=== PATIENT | female | born 1985 | race Caucasian/White ===

== ENCOUNTER 2017-03-21 08:35 | Emergency (ER) | payer MEDICAID ==
--- NOTE | 2017-03-21 08:54 | EDM.PDOC ---
ED HPI GENERAL MEDICAL PROBLEM - General Chief Complaint: Chest Pain Stated Complaint: LEG PAIN X 1 MONTH NOW ARM PAIN AND CHEST PAIN Time Seen by Provider: 03/21/17 08:53 Source of Information: Reports: Patient History Limitations: Reports: No Limitations - History of Present Illness INITIAL COMMENTS - FREE TEXT/NARRATIVE: 31-year-old female presents the ED with left upper extremity pain mostly medial arm to the elbow and left anterior chest pressure discomfort. She states she awoke with these symptoms this morning. Feels it's difficult to breathe as was a constant pressure in her left precordial chest. She does not have asthma. She has no cough or sputum production. No fever or chills. No recent use of control pills. She's been having some pain medial aspect of her left thigh for the better part of a month which is a constant aching discomfort not amenable to stretching nor any worse with exercise program. No swelling of the lower extremity or calf appreciated. Did feel some pain in her calf yesterday p.m. She has no history of DVT and no recent prolonged travel history. States she has full range of motion of her left upper extremity and can't really make the pain worse in her chest on the she deep breathes. She reports it's like a heaviness in her left anterior chest. ECG done by triage nurse reveals sinus rhythm at 81 per minute with decreased voltage in the precordial leads but no signs of ischemia. Onset: Today Onset Date: 03/21/17 (Awoke with left precordial chest and left upper extremity discomfort. Left medial thigh pain has been present for the better part of a month.) Duration: Hour(s): Location: Reports: Chest (Left precordial chest left upper extremity . Medial left thigh.) Quality: Reports: Ache, Pressure, Other (Constant) Severity: Moderate (The pressure just makes it difficult to get a full deep breath.) Improves with: Reports: None Worsens with: Reports: Movement Context: Denies: Activity, Exercise, Lifting, Sick Contact, Trauma, Other Associated Symptoms: Reports: Chest Pain. Denies: No Other Symptoms, Confusion , Cough, cough w sputum, Diaphoresis (See history of present illness), Fever/ Chills, Headaches, Loss of Appetite, Malaise, Nausea/Vomiting, Rash, Seizure, Shortness of Breath, Syncope, Weakness Treatments BULLION WEIGHER: Reports: Other (see below) (None.) Left Upper Leg Pain Score (Numeric/FACES): 4 Left Upper Arm Pain Score (Numeric/FACES): 2 Left Chest Pain Score (Numeric/FACES): 6 - Related Data Allergies Allergy/AdvReac Type Severity Reaction Status Date / Time No Known Allergies Allergy Verified 03/21/17 08:46 Home Meds: Home Meds . 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 Denies: Wheezing, Pleuritic Chest Pain (Only this morning with deep breathing.), Cough, Sputum, Hemoptysis Cardiovascular: Reports: Chest Pain. Denies: Blood Pressure Problem (See history of present illness), Claudication, Dyspnea on Exertion, Edema, Lightheadedness, Orthopnea, Palpitations GI/Abdominal: Reports: No Symptoms : Reports: No Symptoms Musculoskeletal: Reports: Shoulder Pain (Left shoulder and upper arm discomfort started this morning as well. She has full range of motion however.), Other ( Has had constant medial left thigh pain for the better part of a month. Like a deep aching discomfort in her left medial thigh) Skin: Reports: No Symptoms Neurological: Reports: No Symptoms Psychiatric: Reports: No Symptoms Hematologic/Lymphatic: Reports: No Symptoms Immunologic: Reports: No Symptoms ED EXAM, GENERAL - Physical Exam Exam: See Below Exam Limited By: No Limitations General Appearance: Alert, WD/WN, Anxious, Mild Distress Throat/Mouth: Normal Inspection, Normal Lips, Normal Teeth. No: Dysphagia Head: Atraumatic, Normocephalic Neck: Normal Inspection, Supple, Non-Tender, Full Range of Motion. No: Carotid Bruit, Lymphadenopathy (L), Lymphadenopathy (R), Thyromegaly Respiratory/Chest: No Respiratory Distress, Lungs Clear, Normal Breath Sounds, No Accessory Muscle Use, Other (Chest is very tender to palpation particularly third fourth and fifth ribs left midclavicular line and laterally.). No: Chest Non-Tender Cardiovascular: Normal Peripheral Pulses, Regular Rate, Rhythm, No Edema, No Gallop, No Murmur Peripheral Pulses: 2+: Posterior Tibial (L), Posterior Tibial (R), Dorsalis Pedis (L), Dorsalis Pedis (R), 3+: Radial (L), Radial (R) GI/Abdominal: Normal Bowel Sounds, Soft, Non-Tender, No Organomegaly Back Exam: Normal Inspection, Full Range of Motion, Other. No: CVA Tenderness ( L), CVA Tenderness (R) Extremities: Normal Inspection (No rib head subluxation or paraspinal muscle spasm.), Normal Range of Motion, Non-Tender, No Pedal Edema, Other Neurological: Alert (I can't make the pain in her leg any worse by deep palpation of the area that she reports is sore. Also no evidence of swelling of the extremity no pain in the gastrocnemius or midline of the left calf.), Oriented, CN II-XII Intact, Normal Cognition, Normal Gait Psychiatric: Normal Affect, Normal Mood Skin Exam: Warm, Dry, Intact, Normal Color, No Rash EKG INTERPRETATION EKG Date: 03/21/17 Time: 08:50 Rhythm: NSR Rate (Beats/Min): 82 Phillips: Normal P-Wave: Present QRS: Other (Mildly decreased voltage in the precordial leads.) ST-T: Normal QT: Normal EKG Interpretation Comments: Normal ECG without any signs of ischemia. Course - Vital Signs Last Recorded V/S: Last Vital Signs Temp 36.6 C 03/21/17 08:42 Pulse 63 03/21/17 12:03 Resp 16 03/21/17 12:03 BP 111/79 03/21/17 12:03 Pulse Ox 100 03/21/17 12:03 - Orders/Labs/Meds Orders: Active Orders 24 hr Category Date Time Status EKG Documentation Completion [RC] ASDIRECTED Care 03/21/17 08:50 Active EKG 12 Lead [EK] Stat Ther 03/21/17 08:50 Ordered Labs: Laboratory Tests 03/21/17 03/21/17 03/21/17 Range/Units 08:57 08:57 08:57 WBC 4.46 (3.98-10.04) K/mm3 RBC 5.03 (3.98-5.22) M/mm3 Hgb 11.6 (11.2-15.7) gm/L Hct 36.9 (34.1-44.9) % MCV 73.4 L (79.4-94.8) fl MCH 23.1 L (25.6-32.2) pg MCHC 31.4 L (32.2-35.5) g/dl RDW Std Deviation 41.0 (36.4-46.3) fL Plt Count 274 (182-369) K/mm3 MPV 10.0 (9.4-12.3) fl Neutrophils % (Manual) 49 (40-60) % Band Neutrophils % 0 (0-10) % Lymphocytes % (Manual) 49 H (20-40) % Atypical Lymphs % 0 % Monocytes % (Manual) 1 L (2-10) % Eosinophils % (Manual) 1 (0.7-5.8) % Basophils % (Manual) 0 L (0.1-1.2) Platelet Estimate Adequate Hypochromasia 1+ slight Anisocytosis 1+ slight Microcytosis 1+ slight RBC Morph Comment Not Reportable ESR (0-20) mm/hr D-Dimer, Quantitative < 0.19 L (0.19-0.59) mg/L Sodium 139 (136-145) mEq/L Potassium 4.3 (3.5-5.1) mEq/L Chloride 105 (98-107) mEq/L Carbon Dioxide 27 (21-32) mEq/L Anion Gap 11.3 (5-15) BUN 16 (7-18) mg/dL Creatinine 0.8 (0.55-1.02) mg/dL Est Cr Clr Drug Dosing 95.38 mL/min Estimated GFR (MDRD) > 60 (>60) mL/min BUN/Creatinine Ratio 20.0 H (14-18) Glucose 108 H (74-106) mg/dL Calcium 9.0 (8.5-10.1) mg/dL Iron (50-170) ug/dL TIBC (100-400) ug/dL % Saturation (20-55) % Transferrin (202-364) mg/dL Total Bilirubin 1.0 (0.2-1.0) mg/dL AST 20 (15-37) U/L ALT 28 (14-59) U/L Alkaline Phosphatase 55 (46-116) U/L Troponin I < 0.017 (0.00-0.056) ng/mL C-Reactive Protein < 0.2 (<1.0) mg/dL Total Protein 7.2 (6.4-8.2) g/dl Albumin 3.8 (3.4-5.0) g/dl Globulin 3.4 gm/dL Albumin/Globulin Ratio 1.1 (1-2) TSH 3rd Generation 1.906 (0.358-3.74) uIU/mL 03/21/17 03/21/17 Range/Units 08:57 08:57 WBC (3.98-10.04) K/mm3 RBC (3.98-5.22) M/mm3 Hgb (11.2-15.7) gm/L Hct (34.1-44.9) % MCV (79.4-94.8) fl MCH (25.6-32.2) pg MCHC (32.2-35.5) g/dl RDW Std Deviation (36.4-46.3) fL Plt Count (182-369) K/mm3 MPV (9.4-12.3) fl Neutrophils % (Manual) (40-60) % Band Neutrophils % (0-10) % Lymphocytes % (Manual) (20-40) % Atypical Lymphs % % Monocytes % (Manual) (2-10) % Eosinophils % (Manual) (0.7-5.8) % Basophils % (Manual) (0.1-1.2) Platelet Estimate Hypochromasia Anisocytosis Microcytosis RBC Morph Comment ESR 10 (0-20) mm/hr D-Dimer, Quantitative (0.19-0.59) mg/L Sodium (136-145) mEq/L Potassium (3.5-5.1) mEq/L Chloride (98-107) mEq/L Carbon Dioxide (21-32) mEq/L Anion Gap (5-15) BUN (7-18) mg/dL Creatinine (0.55-1.02) mg/dL Est Cr Clr Drug Dosing mL/min Estimated GFR (MDRD) (>60) mL/min BUN/Creatinine Ratio (14-18) Glucose (74-106) mg/dL Calcium (8.5-10.1) mg/dL Iron 25 L (50-170) ug/dL TIBC 390 (100-400) ug/dL % Saturation 6 L (20-55) % Transferrin 312 (202-364) mg/dL Total Bilirubin (0.2-1.0) mg/dL AST (15-37) U/L ALT (14-59) U/L Alkaline Phosphatase (46-116) U/L Troponin I (0.00-0.056) ng/mL C-Reactive Protein (<1.0) mg/dL Total Protein (6.4-8.2) g/dl Albumin (3.4-5.0) g/dl Globulin gm/dL Albumin/Globulin Ratio (1-2) TSH 3rd Generation (0.358-3.74) uIU/mL Meds: Medications Discontinued Medications Generic Name Dose Route Start Last Admin Trade Name Freq PRN Reason Stop Dose Admin Ketorolac Tromethamine 30 mg 03/21/17 09:09 03/21/17 09:14 Toradol IVPUSH 03/21/17 09:10 30 mg ONETIME ONE Administration Methylprednisolone Sodium Succinate 125 mg 03/21/17 11:55 03/21/17 12:01 Solu-Medrol IVPUSH 03/21/17 11:56 125 mg ONETIME ONE Administration - Radiology Interpretation Free Text/Narrative:: 31-year-old female presents the ED with left precordial chest heaviness and radiating up into her left shoulder and medial arm. Awoke with these symptoms this morning. She's had left medial thigh pain deep aching discomfort for the better part of a month. Stop maybe she strained a muscle at the gym but exercise in time is not needed any better. After she developed precordial chest pain and arm pain is more she bit became concerned that she may be having a blood clot problem. She has no history of DVT. Examination reveals marked chest wall tenderness third fourth and fifth rib left precordial chest. Full range of motion of upper extremity without any localized tenderness or swelling. Similarly left lower extremity shows no edema and full range of motion with no palpable deformities or pain on deep palpation. Plan two-view chest x-ray. ECG shows no signs of ischemia or abnormalities. Labs will be obtained including cardiac markers and d-dimer. Sedimentation rate and CRP as well. We'll also x- ray her left femur due to persistent deep aching pain in the medial aspect of the quadriceps for a month. - Re-Assessments/Exams Free Text/Narrative Re-Assessment/Exam: 03/21/17 11:23 two-view chest x-ray is within normal limits. Similarly 2 view of the left femur did not identify any bony abdomen maladies to account for her persistent left leg pain.Labs reveal white count of 4.46 with 49% neutrophils and no bands. Hemoglobin is slightly low 11.6 with hematocrit of 36.9. Note MCV is low at 73.4 suggesting iron deficiency as a cause of her anemia. Sedimentation rate was 10. D-dimer is less than 0.19. Sodium is 139. Potassium 4.3. Chloride 105. Bicarbonate 27. Anion gap is 11.3. BUN is 16 creatinine is 0.8. EGFR is greater than 60. Glucose 108. Calcium 9.0. Liver function normal. Troponin I is less than 0.017. C-reactive protein is less than 0.2. TSH is 1.9. Therefore really no abnormalities were identified on examination or laboratory workup. Clinically she is developed chest wall pain. I will order a serum iron and transferrin and iron binding capacity on blood already drawn. 03/21/17: 12:04: Patient still has mild left precordial chest discomfort and still significant tenderness on palpation of the ribs anteriorly. I'm therefore going to give her some ointment over 125 mg IV to further alleviate inflammation. Advised her to take Aleve 2 tablets every 8 hours as needed to reduce pain and inflammation in the chest wall. This is likely a viral etiology. Advised about wearing sports bras instead of under wire was 0. She also mentions chronic spasm when she bends over and muscles. I therefore advised her to worm picker a calcium magnesium supplement like calamine 400 mg once daily. She will take vitamins daily for the next 4-6 weeks and then have her blood rechecked to see if she is absorbing iron to it. She does have significant heavy mental cycle which is contributed to iron deficiency anemia. There is a chance that her chronic left deep aching pain in her leg is due to anemia. The x-ray of the femur today was completely normal and normal evidence of DVT. 03/21/17 13:24 Total iron level is only 25. Normal is 50-150. Total iron binding capacity is 390 up her limits of normal. Percent saturation is very low at 6. Serum transferrin remains in normal limits at 312. Findings are compatible with iron deficiency anemia. Departure - Departure Time of Disposition: 12:00 Disposition: Home, Self-Care 01 Condition: Fair Clinical Impression: Non-cardiac chest pain, Acute chest wall pain, Chronic pain of left lower extremity Iron deficiency anemia Qualifiers: Iron deficiency anemia type: unspecified iron deficiency Qualified Code(s): D50.9 - Iron deficiency anemia, unspecified Instructions: Chest Wall Pain, [id number] Referrals: PCP,None [Ordering Only Provider] - Forms: ED Department Discharge Additional Instructions: Evaluation the emergency room today in regards to development of left anterior chest wall pain radiating to the left shoulder and upper arm as well as chronic pain in the left medial thigh area for the last month. Pain is worsened by deep breathing suggesting a component of pleurisy or inflammation of the lung lining. Pain is evident on palpation of the ribs particularly 34 and 5 on the left side the clavicular line indicating some inflammation of the chest wall as well. Chest x-ray two-view was normal. ECG/heart tracing also proved to be normal. Lab tests also proved to be completely normal with no sign of any serious bacterial infections and no evidence of blood clot in the lungs or legs. Normal heart function as well. Lab function did reveal iron deficiency anemia with small cells that suggest you had been deficient in iron for a lengthy period of time. This may or may not be accounting for some of his chronic left leg pain as the bone marrow has to work overtime when the iron levels are low. This sometimes can cause lower extremity aching. It does not have anything to do today with the occurrence of the left chest wall pain. This is usually viral in origin and as we discussed making sure good support of the breasts with a sports bra or 2 versus underwire bra is important as these cause chest wall pain on occasion. Treatment is there for her to be a vitamin with iron daily ideally with a vitamin C 100 mg tablet to promote increased absorption of the iron. Suggest Aleve 2 tablets every 6 hours as needed for inflammation of the chest wall. Suggest also picking up some calcium magnesium supplement 400 mg tablet once daily. Best place to get this is at [facility] store . They have a much more reliable calcium magnesium supplement and is offered through [employer] etc. Suggest follow-up in the clinic in 4-6 weeks' time to have your iron levels reassessed and your blood values reassess to see if you 're absorbing iron. Chest wall pain may last 5-10 days--particularly nonviral form of chest wall pain. Follow-up with your personal care physician if any further problems occur. - My Orders Last 24 Hours: My Active Orders 03/21/17 08:50 EKG Documentation Completion [RC] ASDIRECTED EKG 12 Lead [EK] Stat - Assessment/Plan Last 24 Hours: My Active Orders 03/21/17 08:50 EKG Documentation Completion [RC] ASDIRECTED EKG 12 Lead [EK] Stat
[2017-03-21] MEDS ORDERED: Ketorolac 30 MG/ML SDV IVPUSH ONE (09:09)
--- NOTE | 2017-03-21 11:16 | CR ---
Chest: Two views of the chest were obtained. Comparison: No prior study. Heart size and mediastinum are normal. Lungs are clear. Bony structures are unremarkable. Impression: 1. Nothing acute is identified on two-view chest x-ray. Diagnostic code #1
--- NOTE | 2017-03-21 11:16 | CR ---
Left femur: AP and lateral views of the left femur were obtained. Comparison: No prior study. No fracture or other bony abnormality is seen. Impression: 1. No abnormality is identified on two-view left femur study. Diagnostic code #1
[2017-03-21] MEDS ORDERED: methylPREDNISolone Sodium Succinate 125 MG/2 ML SDV IVPUSH ONE (11:55)
== END 2017-03-21 12:10 | disposition home or self-care (01) ==
LOC: JD.ED 08:35
DX: R07.89 Other chest pain (principal); M79.605 Pain in left leg; G89.29 Other chronic pain; D50.9 Iron deficiency anemia, unspecified
CPT/HCPCS: 36415; 71046; 73552; 80053; 83540; 84443; 84466; 84484; 85025; 85379; 85652; 86140; 93005; 96374; 96375; 99285; J1885; J2930; 93010

== ENCOUNTER 2019-09-25 00:56 | Emergency (ER) | payer BC, MEDICAID ==
[2019-09-25] MEDS ORDERED: Ondansetron 4 MG/2 ML SDV IVPUSH ONE ×2 (01:19→02:21)
[2019-09-25] MEDS ORDERED: HYDROmorphone 1 MG/ML Syringe IVPUSH STA (01:19)
--- NOTE | 2019-09-25 01:26 | EDM.PDOC ---
ED HPI GENERAL MEDICAL PROBLEM - General Chief Complaint: Abdominal Pain Stated Complaint: left side sharp abdominal pain Time Seen by Provider: 09/25/19 01:06 Source of Information: Reports: Patient History Limitations: Reports: No Limitations - History of Present Illness INITIAL COMMENTS - FREE TEXT/NARRATIVE: Ms. Rashid Morris is a very pleasant 33-year-old woman with a past medical history significant for diverticulitis, who now presents the ED stating that she was woken around 23:00 this evening with sharp left lower quadrant abdominal pain. The pain is constant, but made worse if she moves. Initially it radiated through to her back sporadically, but is now constantly radiating to her back. Her back pain is not modified with movement. The patient has had nausea, and vomited twice. She states that the diverticulitis that she had was so long ago, she does not recall if her current symptoms are the same as that. The patient states that she did not take any qcca-vas-hhchyno or home remedies prior to coming to the ED. She last ate around 21:00. Here in the ED, the patient is found to be hemodynamically stable, afebrile, saturating 98% on room air. Other than tonight's abdominal and back pain, nausea and vomiting, the patient denies recent fever, chills, sore throat, ear pain, nasal or sinus congestion, cough, dyspnea, chest pain, palpitations, constipation, diarrhea, urinary symptoms, recent weight gain or weight loss, recent bloody bowel movements or black bowel movements, recent joint aches, headaches, or rashes. The patient's PCP is in [place]. Left Abdominal Pain Score (Numeric/FACES): 7 - Related Data Allergies Allergy/AdvReac Type Severity Reaction Status Date / Time No Known Allergies Allergy Verified 09/25/19 01:06 Home Meds: Home Meds . [No Known Home Meds] 03/21/17 [History] Past Medical History Gastrointestinal History: Reports: Diverticulosis (diverticulitis) [employer] History: Reports: Spontaneous (x 1), Other (See Below) (Ovarian cyst) : 4 Para: 4 LMP (Approximate): Other (See Below) (IUD) Endocrine/Metabolic History: Reports: Hypothyroidism (untreated), Obesity/BMI 30+ - Past Surgical History HEENT Surgical History: Reports: Oral Surgery (single wisdom tooth extracted) Female Surgical History: Reports: Section (x 3), D&C (x 1) Social & Family History - Tobacco Use Smoking Status *Q: Never Smoker Second Hand Smoke Exposure: No - Caffeine Use Caffeine Use: Reports: Soda - Alcohol Use Alcohol Use History: Yes Alcohol Use Frequency: Rarely - Recreational Drug Use Recreational Drug Use: No - Living Situation & Occupation Living situation: Reports: Single, with Family Occupation: Unemployed ED ROS GENERAL - Review of Systems Review Of Systems: Comprehensive ROS is negative, except as noted in HPI. ED EXAM, GI/ABD - Physical Exam Exam: See Below Exam Limited By: No Limitations General Appearance: Alert, WD/WN, No Apparent Distress Eyes: Bilateral: Normal Appearance, EOMI Ears: Normal External Exam, Hearing Grossly Normal Nose: Normal Inspection Throat/Mouth: Normal Inspection, Normal Lips, Normal Voice, No Airway Compromise Head: Atraumatic, Normocephalic Neck: Normal Inspection, Full Range of Motion Respiratory/Chest: No Respiratory Distress, Lungs Clear, Normal Breath Sounds, No Accessory Muscle Use Cardiovascular: Normal Peripheral Pulses, Regular Rate, Rhythm, No Edema, No Gallop, No JVD, No Murmur, No Rub GI/Abdominal Exam: Normal Bowel Sounds, Soft, No Organomegaly, No Distention, No Abnormal Bruit, No Mass, Tender (Considerable, in the left lower quadrant only, with essentially no tenderness elsewhere) (Female) Exam: Deferred Rectal (Female) Exam: Deferred Back Exam: Normal Inspection, Full Range of Motion, CVA Tenderness (L). No: CVA Tenderness (R) Extremities: Normal Inspection, Normal Range of Motion, No Pedal Edema, Normal Capillary Refill Neurological: Alert, Oriented, Normal Cognition, No Motor/Sensory Deficits Psychiatric: Normal Affect Skin Exam: Warm, Dry, Intact, Normal Color, No Rash Course - Vital Signs Last Recorded V/S: Last Vital Signs Temp 36.4 C 09/25/19 01:05 Pulse 82 09/25/19 01:05 Resp 20 09/25/19 01:05 BP 142/98 H 09/25/19 01:05 Pulse Ox 98 09/25/19 01:05 - Orders/Labs/Meds Orders: Active Orders 24 hr Category Date Time Status Abdomen Pelvis w Cont [CT] Stat Exams 09/25/19 01:19 Taken Sodium Chloride 0.9% [Normal Saline] 1,000 ml Med 09/25/19 01:30 Active IV ASDIRECTED Sodium Chloride 0.9% [Saline Flush] Med 09/25/19 02:12 Active 10 ml FLUSH ONETIME PRN Medication Orders Sodium Chloride (Normal Saline) 1,000 mls @ 150 mls/hr IV ASDIRECTED KADEN Last Admin: 09/25/19 01:26 Dose: 150 mls/hr Documented by: JESUSITA Sodium Chloride (Saline Flush) 10 ml FLUSH ONETIME PRN PRN Reason: Keep Vein Open Last Admin: 09/25/19 02:45 Dose: 10 ml Documented by: AL Labs: Laboratory Tests 09/25/19 09/25/19 09/25/19 Range/Units 01:20 01:20 02:35 WBC 8.38 (3.98-10.04) K/mm3 RBC 5.37 H (3.98-5.22) M/mm3 Hgb 12.9 (11.2-15.7) gm/dl Hct 40.5 (34.1-44.9) % MCV 75.4 L (79.4-94.8) fl MCH 24.0 L (25.6-32.2) pg MCHC 31.9 L (32.2-35.5) g/dl RDW Std Deviation 43.9 (36.4-46.3) fL Plt Count 276 (182-369) K/mm3 MPV 9.4 (9.4-12.3) fl Neutrophils % (Manual) 65 H (40-60) % Band Neutrophils % 0 (0-10) % Lymphocytes % (Manual) 32 (20-40) % Atypical Lymphs % 0 % Monocytes % (Manual) 2 (2-10) % Eosinophils % (Manual) 0 L (0.7-5.8) % Basophils % (Manual) 1 (0.1-1.2) Platelet Estimate Adequate Plt Morphology Comment Normal Ovalocytes Moderate Efrem Cells Few Schistocytes Rare RBC Morph Comment Not Reportable Sodium 138 (136-145) mEq/L Potassium 3.8 (3.5-5.1) mEq/L Chloride 101 (98-107) mEq/L Carbon Dioxide 28 (21-32) mEq/L Anion Gap 12.8 (5-15) BUN 21 H (7-18) mg/dL Creatinine 1.1 H (0.55-1.02) mg/dL Est Cr Clr Drug Dosing 68.10 mL/min Estimated GFR (MDRD) 57 (>60) mL/min BUN/Creatinine Ratio 19.1 H (14-18) Glucose 121 H (74-106) mg/dL Calcium 9.2 (8.5-10.1) mg/dL Total Bilirubin 0.9 (0.2-1.0) mg/dL AST 13 L (15-37) U/L ALT 24 (14-59) U/L Alkaline Phosphatase 59 (46-116) U/L Total Protein 7.5 (6.4-8.2) g/dl Albumin 4.0 (3.4-5.0) g/dl Globulin 3.5 gm/dL Albumin/Globulin Ratio 1.1 (1-2) Lipase 54 L (73-393) U/L Urine Color Sherri H (Yellow) Urine Appearance Cloudy H (Clear) Urine pH 6.0 (5.0-8.0) Ur Specific [place] > or = 1.030 (1.005-1.030) Urine Protein 1+ H (Negative) Urine Glucose (UA) Negative (Negative) Urine Ketones Negative (Negative) Urine Occult Blood 3+ H (Negative) Urine Nitrite Negative (Negative) Urine Bilirubin 1+ H (Negative) Urine Urobilinogen 1.0 (0.2-1.0) Ur Leukocyte Esterase Negative (Negative) Urine RBC Too numerous to cnt H (0-5) /hpf Urine WBC 5-10 H (0-5) /hpf Ur Epithelial Cells 0-5 (0-5) /hpf Urine Bacteria Few (FEW) /hpf Urine Mucus Few (FEW) /hpf Urine HCG, Qual (NEGATIVE) 09/25/19 Range/Units 02:35 WBC (3.98-10.04) K/mm3 RBC (3.98-5.22) M/mm3 Hgb (11.2-15.7) gm/dl Hct (34.1-44.9) % MCV (79.4-94.8) fl MCH (25.6-32.2) pg MCHC (32.2-35.5) g/dl RDW Std Deviation (36.4-46.3) fL Plt Count (182-369) K/mm3 MPV (9.4-12.3) fl Neutrophils % (Manual) (40-60) % Band Neutrophils % (0-10) % Lymphocytes % (Manual) (20-40) % Atypical Lymphs % % Monocytes % (Manual) (2-10) % Eosinophils % (Manual) (0.7-5.8) % Basophils % (Manual) (0.1-1.2) Platelet Estimate Plt Morphology Comment Ovalocytes Efrem Cells Schistocytes RBC Morph Comment Sodium (136-145) mEq/L Potassium (3.5-5.1) mEq/L Chloride (98-107) mEq/L Carbon Dioxide (21-32) mEq/L Anion Gap (5-15) BUN (7-18) mg/dL Creatinine (0.55-1.02) mg/dL Est Cr Clr Drug Dosing mL/min Estimated GFR (MDRD) (>60) mL/min BUN/Creatinine Ratio (14-18) Glucose (74-106) mg/dL Calcium (8.5-10.1) mg/dL Total Bilirubin (0.2-1.0) mg/dL AST (15-37) U/L ALT (14-59) U/L Alkaline Phosphatase (46-116) U/L Total Protein (6.4-8.2) g/dl Albumin (3.4-5.0) g/dl Globulin gm/dL Albumin/Globulin Ratio (1-2) Lipase (73-393) U/L Urine Color (Yellow) Urine Appearance (Clear) Urine pH (5.0-8.0) Ur Specific [place] (1.005-1.030) Urine Protein (Negative) Urine Glucose (UA) (Negative) Urine Ketones (Negative) Urine Occult Blood (Negative) Urine Nitrite (Negative) Urine Bilirubin (Negative) Urine Urobilinogen (0.2-1.0) Ur Leukocyte Esterase (Negative) Urine RBC (0-5) /hpf Urine WBC (0-5) /hpf Ur Epithelial Cells (0-5) /hpf Urine Bacteria (FEW) /hpf Urine Mucus (FEW) /hpf Urine HCG, Qual Negative (NEGATIVE) Meds: Medications Generic Name Dose Route Start Last Admin Trade Name Freq PRN Reason Stop Dose Admin Sodium Chloride 1,000 mls @ 150 mls/hr 09/25/19 01:30 09/25/19 01:26 Normal Saline IV 150 mls/hr ASDIRECTED KADEN Administration Sodium Chloride 10 ml 09/25/19 02:12 09/25/19 02:45 Saline Flush FLUSH 10 ml ONETIME PRN Administration Keep Vein Open Discontinued Medications Generic Name Dose Route Start Last Admin Trade Name Freq PRN Reason Stop Dose Admin Diatrizoate Meglum/Diatrizoate Sod 90 ml 09/25/19 02:12 09/25/19 02:46 Gastrografin 37% PO 09/25/19 02:13 Not Given ONETIME ONE Hydromorphone HCl 1 mg 09/25/19 01:19 09/25/19 01:28 Dilaudid IVPUSH 09/25/19 01:20 1 mg ONETIME STA Administration Iopamidol 100 ml 09/25/19 02:12 09/25/19 02:45 Isovue-300 (61%) IVPUSH 09/25/19 02:13 100 ml ONETIME ONE Administration Ondansetron HCl 4 mg 09/25/19 01:19 09/25/19 01:27 Zofran IVPUSH 09/25/19 01:20 4 mg ONETIME ONE Administration Ondansetron HCl 4 mg 09/25/19 02:21 09/25/19 02:24 Zofran IVPUSH 09/25/19 02:22 4 mg ONETIME ONE Administration Ondansetron HCl Confirm 09/25/19 02:23 09/25/19 02:42 Zofran Administered 09/25/19 02:24 Not Given Dose 4 mg .ROUTE .[facility] ONE - Re-Assessments/Exams Free Text/Narrative Re-Assessment/Exam: 09/25/19 01:21 As above, the patient was woken about 2 hours ago with sharp left lower quadrant abdominal pain that initially radiated sporadically to her lower left back, but is now constantly radiating to her lower left back. She has vomited twice. On examination, her abdomen is soft with normoactive bowel sounds, however, she has considerable tenderness to her left lower quadrant, and also has some left CVA tenderness. Based on her history and physical examination, I cannot say at this time whether her pain is due to diverticulitis, a ruptured left ovarian cyst, a left ureterolith, or some other condition entirely, therefore I have ordered a work-up that includes blood work, a urinalysis, a urine test, and a CT scan of her abdomen and pelvis with oral and IV contrast. In the meantime, the patient will be given IV Dilaudid, IV Zofran, and IV fluid. 09/25/19 03:10 The patient's CBC is unremarkable. Her CMP is remarkable for a BUN/Cr mildly elevated at 21/1.1, and a blood glucose mildly elevated at 121, with the remainder of her CMP being unremarkable. Her lipase level is within normal limits at 54. Her urine test is negative. CT of the abdomen and pelvis with oral and IV contrast is read by [facility] as: 1. No evidence for renal or ureteral calculi. 2. 3.2 cm left ovarian cyst with small free fluid in the pelvis 3. IUD in good position within the mid body of the uterus 4. Normal appendix right lower quadrant The patient's urinalysis results are still pending. 09/25/19 03:19 The patient's urinalysis is remarkable for cloudy appearance, 3+ occult blood with too numerous to count RBCs, negative leukocyte esterase with 5-10 WBCs, negative nitrite with few bacteria, and 0-5 squamous epithelial cells. 09/25/19 03:24 Test results discussed with the patient. Her work-up tonight indicates that her pain is due to an ovarian cyst. The recommended treatment is ibuprofen. I will discharge her home. Departure - Departure Time of Disposition: 03:25 Disposition: Home, Self-Care 01 Condition: Good Clinical Impression: Left ovarian cyst - Discharge Information *PRESCRIPTION DRUG MONITORING PROGRAM REVIEWED*: Not Applicable *COPY OF PRESCRIPTION DRUG MONITORING REPORT IN PATIENT MARIZA: Not Applicable Instructions: Ovarian Cyst Referrals: PCP,Not In Area [Primary Care Provider] - Forms: ED Department Discharge Additional Instructions: You were seen in the Emergency Room for sudden-onset lower left abdominal pain that radiated into your lower left back, along with nausea and vomiting. Workup in the ER included bloodwork, a urinalysis, a urine test, and a CT scan of your abdomen and pelvis with oral and IV contrast. Your workup found that you have a 3.2 cm left ovarian cyst, which appears to be the cause of your symptoms. The remainder of your workup was unremarkable. We recommend that you take [id number] ibuprofen, 3 tablets (600 mg) up to every 8 hours, with food, as needed for discomfort. If any other problems, please do not hesitate to return to the ER. Sepsis Event Note (ED) - Evaluation Sepsis Screening Result: No Definite Risk - Focused Exam Vital Signs: Vital Signs Temp Pulse Resp BP Pulse Ox 09/25/19 01:05 36.4 C 82 20 142/98 H 98 - My Orders Last 24 Hours: My Active Orders 09/25/19 01:19 Abdomen Pelvis w Cont [CT] Stat 09/25/19 01:30 Sodium Chloride 0.9% [Normal Saline] 1,000 ml IV ASDIRECTED 09/25/19 02:12 Sodium Chloride 0.9% [Saline Flush] 10 ml FLUSH ONETIME PRN - Assessment/Plan Last 24 Hours: My Active Orders 09/25/19 01:19 Abdomen Pelvis w Cont [CT] Stat 09/25/19 01:30 Sodium Chloride 0.9% [Normal Saline] 1,000 ml IV ASDIRECTED 09/25/19 02:12 Sodium Chloride 0.9% [Saline Flush] 10 ml FLUSH ONETIME PRN
[2019-09-25] MEDS ORDERED: Sodium Chloride 0.9% 1,000 ML IV SCH (01:30)
[2019-09-25] MEDS ORDERED: Sodium Chloride 0.9% 10 ML Syringe FLUSH PRN (02:12)
[2019-09-25] MEDS ORDERED: Diatrizoate Meglumine/Diatrizoate Sodium 37% 120 ML Bottle PO ONE (02:12)
[2019-09-25] MEDS ORDERED: Iopamidol 612 MG/ML 100 ML Bottle IVPUSH ONE (02:12)
[2019-09-25] MEDS ORDERED: Ondansetron 4 MG/2 ML SDV ONE (02:23)
--- NOTE | 2019-09-25 08:52 | CT ---
CT abdomen and pelvis Technique: Multiple axial sections were obtained from above the dome of the diaphragm inferiorly through the pubic symphysis. Intravenous contrast and small amount of oral contrast is noted. Comparison: No prior abdominal imaging is available. Findings: Visualized lung bases show nothing acute. Liver contains no focal parenchymal abnormality. Spleen appears within normal limits. Adrenal glands show no nodule. Pancreas shows no discrete abnormality. Gallbladder contains no calcified gallstones. Kidneys show symmetric contrast enhancement without hydronephrosis or mass. Aorta shows no aneurysm. No retroperitoneal adenopathy or mesenteric abnormalities are seen. 3.0 cm cyst is noted within the left ovary. IUD is present within the uterus. No pelvic mass or adenopathy is seen. No free fluid or inflammatory change is appreciated. Appendix is seen and is normal in appearance. No bowel abnormality is seen. Delayed images shows contrast within both distal ureters as well as within the bladder. No acute bony abnormality is appreciated. Impression: 1. 3.0 cm cyst within the left ovary. 2. IUD is present within the uterus. 3. Nothing acute is appreciated on CT study of the abdomen and pelvis. Diagnostic code #2 This report was dictated in MDT I agree with preliminary report from [facility], finalized on 09/25/19, 4:05 AM Central Daylight Time
== END 2019-09-25 03:43 | disposition home or self-care (01) ==
LOC: JD.ED 00:56
DX: N83.202 Unspecified ovarian cyst, left side (principal); E66.9 Obesity, unspecified; R11.2 Nausea with vomiting, unspecified; Z98.890 Other specified postprocedural states; Z68.37 Body mass index [BMI] 37.0-37.9, adult
CPT/HCPCS: 36415; 74177; 80053; 81001; 81025; 83690; 85007; 85027; 96361; 96374; 96375; 96376; 99284; J1170; J2405; J7030; Q9963; Q9967

== ENCOUNTER 2023-11-23 14:11 | Emergency (ER) | payer BC, OTHER ==
[2023-11-23 14:56] LABS: BASOPHILS ABSOLUTE AUTO 0.1 K/mm3 (0.0-0.2); BASOPHILS PERCENT AUTO 0.7 % (0.0-1.0); EOSINOPHILS ABSOLUTE AUTO 0.1 K/mm3 (0.0-0.4); EOSINOPHILS PERCENT AUTO 1.6 % (0.0-6.0); HEMATOCRIT 46.7 % (37.0-47.0); HEMOGLOBIN 16.2 gm/dl (12.0-16.0); IMMATURE GRAN ABSOLUTE AUTO 0.03 K/mm3 (0.00-0.05); IMMATURE GRAN PERCENT AUTO 0.4 % (0.0-0.4); LYMPHOCYTES ABSOLUTE AUTO 1.7 K/mm3 (1.0-4.8); MEAN CORPUSCULAR HEMOGLOBIN 30.6 pg (28.0-32.0); MEAN CORPUSCULAR HGB CONC 34.7 g/dl (32.0-36.0); MEAN CORPUSCULAR VOLUME 88.3 fl (83.0-99.0); MEAN PLATELET VOLUME 9.6 fl (9.4-12.3); MONOCYTES ABSOLUTE AUTO 0.7 K/mm3 (0.0-0.8); MONOCYTES PERCENT AUTO 9.2 % (0.0-8.0); NEUTROPHILS ABSOLUTE AUTO 4.8 K/mm3 (1.8-7.7); NEUTROPHILS PERCENT AUTO 65.1 % (41.0-71.0); PLATELET COUNT,PLT 252 K/mm3 (150-400); RED BLOOD CELL COUNT 5.29 M/mm3 (4.10-5.30)
[2023-11-23 15:08] LABS: A/G RATIO 1.3 (1-2); ALANINE AMINOTRANSFERASE,ALT 40 U/L (14-59); ALBUMIN 4.1 g/dl (3.4-5.0); ALKALINE PHOSPHATASE 52 U/L (46-116); ASPARTATE AMNIOTRANSFERASE,AST 21 U/L (15-37); BILIRUBIN TOTAL 2.7 mg/dL (0.2-1.0); BLOOD UREA NITROGEN,BUN 17 mg/dL (7-18); BUN/CREATININE RATIO 15.5 (14-18); CALCIUM 9.2 mg/dL (8.5-10.1); CARBON DIOXIDE,CO2 27 mEq/L (21-32); CHLORIDE,CL 106 mEq/L (98-107); CREATININE 1.1 mg/dL (0.55-1.02); ESTIMATED GFR 66 mL/min (>60); GLUCOSE RANDOM 106 mg/dL (70-99); MAGNESIUM 1.7 mg/dL (1.8-2.4); PROTEIN TOTAL,TP 7.2 g/dl (6.4-8.2); SODIUM,NA 140 mEq/L (136-145)
[2023-11-23] MEDS: Sodium Chloride 0.9% 1,000 ML IV SCH (15:34)
[2023-11-23] MEDS: Ondansetron 4 MG/2 ML SDV IVPUSH ONE (15:34)
[2023-11-23] MEDS: Sodium Chloride 0.9% 10 ML Syringe FLUSH PRN (15:36)
[2023-11-23 15:45] LABS: TROPONIN I HIGH SENSITIVITY < 4 pg/mL (<=51)
== END 2023-11-23 17:05 | disposition home or self-care (01) ==
LOC: JD.ED 14:11
DX: A08.4 Viral intestinal infection, unspecified (principal); R07.89 Other chest pain; E66.9 Obesity, unspecified; Z79.899 Other long term (current) drug therapy; Z68.39 Body mass index [BMI] 39.0-39.9, adult
CPT/HCPCS: 36415; 71045; 80053; 83735; 84484; 85025; 93005; 96361; 96374; 99285; J2405; J3490; J7030; 93010; 99284